=== PATIENT | female | born 2000 | race Caucasian/White ===

== ENCOUNTER 2024-01-10 23:20 | Emergency (ER) | payer OTHER, SELFPAY ==
[2024-01-10 23:28] VITALS: BP 127/75; PULSE 80; RESP 18; TEMP 36.8; O2SAT 100; BMI 33.1
--- NOTE | 2024-01-11 00:15 | XR_ITS ---
Patient: [facility] Facility:?[facility] Patient ID:?[id number] Site Patient ID:?[id number] Site :?[id number] Study:?XRay-Spine Lumbar 2 VIEWS-01/11/2024 12:38:44 AM Ordering Physician:EMILIE Final Report: Indication: Low back pain. Technique: Lumbar spine 2 views. Comparison: None. Findings: There are 5 lumbar type vertebral bodies in normal height and alignment. The intervertebral disc spaces are maintained. No acute fracture or aggressive osseous lesion. No significant endplate degenerative changes. Bone mineralization is appropriate. The soft tissues are unremarkable. Impression: Unremarkable lumbar spine. No acute bony abnormality. Dictated by Deepak Caruso MD @ 01/11/2024 12:43:13 AM Signed by:?Deepak Caruso MD @01/11/2024 12:43:13 AM (Electronic Signature)
[2024-01-11] MEDS: KETOROLAC 30 MG/ML inj IM (01:45)
--- NOTE | 2024-01-11 02:18 | ED_ITS ---
HPI - Back Pain/Injury General Chief Complaint: Back Injury/Pain Stated Complaint: low back pain Time Seen by Provider: 01/10/24 23:51 Source: patient Mode of arrival: ambulatory Limitations: no limitations History of Present Illness HPI Narrative: Pt c/o back pain for one month. Pt states it becomes worse with standing, movement, and lifting and radiates into hips. 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 She notes back pain in her lower back region with radiation around both her hips, denies any significant leg discomfort or radiating pain denies any numbness tingling or weakness, has used chiropractic manipulation in the past but really does not have a history of significant pain. No history of cancer, fevers chills weight loss or significant nighttime pain, she notices it worse when she is at work. No history of any inciting incident, falls trauma MD elicited complaint: back pain Pertinent past history: prior back pain Timing: intermittent Severity: moderate Similar Symptoms Previously: No Quality: dull and stabbing Location: lumbar spine Radiation: left upper leg and right upper leg Exacerbating factors: movement and sitting upright Relieving factors: immobilization and medication Associated symptoms: denies other symptoms Treatments prior to arrival: cold therapy, NSAIDS and acetaminophen Work related injury: No Related Data Home Medications Medication Instructions Recorded Confirmed buspirone 15 mg tablet 15 mg PO BID 01/10/24 01/10/24 lisdexamfetamine 50 mg capsule 150 mg PO QAM 01/10/24 01/10/24 (Vyvanse) trazodone .ROUTE 01/10/24 Allergies Allergy/AdvReac Type Severity Reaction Status Date / Time No Known Drug Allergies Allergy Verified 01/10/24 23:34 Review of Systems Status of ROS: Reports: 10 or more systems reviewed and unremarkable except as noted in History and below [facility] Social History Smoking Status: Current every day smoker Do you use any of these nicotine containing products: E-Cigarettes and Vaping Products Second hand tobacco smoke exposure: No How often do you have a drink containing alcohol: monthly or less AUDIT-C Alcohol total score: 1 Non-prescribed substance use: marijuana (any form) Exam Narrative: Exam Narrative: On examination in room 1 she is in no apparent distress she is able to get up for me and walk normally, heel and toe walking were normal forward flexion is hands to the floor, but coming back up exacerbates her discomfort in her low back there is no palpable pain on palpation over low back, on palpation percussion there is no masses, noted. SLR is are negative to 90? sitting. EHLs great toe flexors ankle dorsiflexors plantar flexors knee flexors 10 sirs and hip flexors are graded 5/5 power bilaterally, good muscle bulk is noted bilaterally sensations normal pulses are normal, no edema is noted. And she has normal reflexes 2+ of her knees and ankles. Her hips have excellent range of motion. Const: Vital Signs, click to edit/add: Vital Signs - 24 hr 01/10/24 23:28 Temperature 98.2 F Pulse Rate [Pulse Oximeter] 80 Respiratory Rate 18 Blood Pressure [Ri ght Upper Arm] 127/75 Pulse Oximetry 100 Oxygen Delivery Me thod Room Air Documenting provider has reviewed patient's vital signs: yes Course Course ED Course: I discussed with her that I think this is more likely mechanical in nature, I do not think this is a disc, given what I see here, I recommend Tylenol ibuprofen ice, avoidance of heat, follow-up with primary care consider physical therapy referral. Return here if signs and symptoms of worsening occur which I discussed with her. She wanted a note for work and I gave her a note for work to be off for the next 48 hours. Vital Signs Vital signs: Initial Vital Signs Temperature 98.2 F 01/10/24 23:28 Temperature Source Temporal Artery Scan 01/10/24 23:28 Pulse Rate 80 01/10/24 23:28 Respiratory Rate 18 01/10/24 23:28 Blood Pressure 127/75 01/10/24 23:28 Blood Pressure Mean 92 01/10/24 23:28 Blood Pressure Position Sitting 01/10/24 23:28 Pulse Oximetry 100 01/10/24 23:28 Oxygen Delivery Method Room Air 01/10/24 23:28 Vital Signs Temperature 98.2 F 01/10/24 23:28 Pulse Rate 80 01/10/24 23:28 Respiratory Rate 18 01/10/24 23:28 Blood Pressure 127/75 01/10/24 23:28 Pulse Oximetry 100 01/10/24 23:28 Oxygen Delivery Method Room Air 01/10/24 23:28 Temperature 98.2 F 01/10/24 23:28 Pulse Rate 80 01/10/24 23:28 Respiratory Rate 18 01/10/24 23:28 Blood Pressure 127/75 01/10/24 23:28 Pulse Oximetry 100 01/10/24 23:28 Oxygen Delivery Method Room Air 01/10/24 23:28 Medications Administered Medications: Discontinued Medications Generic Name Dose Route Start Last Admin Trade Name Robyn PRN Reason Stop Dose Admin Ketorolac Tromethamine 30 mg 01/11/24 01:19 01/11/24 01:45 Ketorolac 30 Mg/Ml Inj IM 01/11/24 01:20 30 mg ONCE ONE Administration MDM - Back Pain/Injury MDM Narrative Medical decision making narrative: Life-threatening differential diagnosis considered include: Cauda equina an epidural abscess, other differential diagnosis considered includes sprain, contusion, nerve root entrapment, radiculopathy, muscle spasm, urolithiasis, lumbar fracture, pyelonephritis, appendicitis, biliary colic, as well as other etiologies. The patient denies saddle anesthesia bowel or bladder incontinence or lower extremity weakness, recent weight loss, or history of malignancy. Medical Records Attestation: I reviewed the patient's medical records. Imaging Data Lumbar spine: Attestation: I have reviewed the pertinent imaging results. My impression: Lumbar spine x-rays are done there is no significant disc space narrowing, alignment is excellent no spondylolisthesis, no compression deformity. I see no acute finding Discharge Plan Discharge Clinical Impression: Strain of lumbar region Patient Disposition: Home, Self-Care Condition: Stable Instructions: Muscle Strain (DC), Low Back Strain (ED), Back Pain (ED), Lower Back Exercises (ED), Cold Compress or Soak (ED) Additional Instructions: Home, rest, ice follow-up with primary care ibuprofen for the discomfort, he can start this tomorrow, as the Toradol last 6-8 hours. No evidence of abnormality seen on the x-ray. Note for work given Activity Level: Light activity Prescriptions: No Action lisdexamfetamine [Vyvanse] 50 mg capsule 150 mg PO QAM buspirone 15 mg tablet 15 mg PO BID trazodone .ROUTE Follow Up/Referrals: Provider,Not a Local [Primary Care Provider] - Stand Alone Forms: MMISth Info Instructions
== END 2024-01-11 01:49 | disposition home or self-care (01) ==
PROVIDERS: Emergency Provider Family Medicine
DX: S39.012A Strain of muscle, fascia and tendon of lower back, initial encounter (principal)
CPT/HCPCS: 72100; 96372; 99283; 99284; J1885